=== PATIENT | female | born 1975 | race Caucasian/White ===

== ENCOUNTER 2018-08-25 17:04 | Emergency (ER) | payer OTHER, MEDICAID ==
[~2018-08-25] VITALS: Ht 177.8 cm; Wt 88.5 kg
[2018-08-25 22:24] VITALS: BP 154/86
[2018-08-25] MEDS ORDERED: BACLOFEN 10 MG TAB PO ONE (22:30)
[2018-08-25] MEDS ORDERED: HYDROcodone-ACET 10/325MG TAB PO ONE (22:30)
== END 2018-08-25 22:48 | disposition home or self-care (01) ==
LOC: EDBD 17:04 → ER 17:18
DX: M62.838 Other muscle spasm (principal); M54.2 Cervicalgia; M54.9 Dorsalgia, unspecified; Z88.1 Allergy status to other antibiotic agents; V43.52XA Car driver injured in collision with other type car in traffic accident, initial encounter; Y93.89 Activity, other specified; Y99.8 Other external cause status; Y92.410 Unspecified street and highway as the place of occurrence of the external cause
CPT/HCPCS: 71250; 72125